=== PATIENT | male | born 1960 ===

== ENCOUNTER → 2025-03-22 | Emergency (ER) | payer OTHER ==
[~2025-03-22] VITALS: Ht 177.8 cm; Wt 99.1 kg
[2025-03-22 16:05] VITALS: BP 139/83; PULSE 70; RESP 16; TEMP 98; O2SAT 98
--- NOTE | 2025-03-22 16:16 | VISIT NOTE ---
ED Rapid Medical Assessment Chief Complaint: Detox Clearance History This is a 64-year-old male who comes in requesting a drug and alcohol test. The patient states that he was arrested last night for drug and alcohol intoxication and states that he does not drink or do drugs and would like it test approve that. Says he was just released from [facility] about 30 minutes ago. Aside from this he has not no other acute complaints. Exam: General: Well-developed well-nourished no apparent distress. Respiratory: No increased respiratory effort or retractions. No audible wheezes. Psych: The patient is agitated but cooperative. No obvious visual or auditory hallucinations. Assessment and Plan I told the patient was a there was no acute emergent need for a drug or alcohol tested at this point and you can purchase a drug test through any of the local drug stores. The patient became agitated and eloped. ELIU FREEMAN Mar 22, 2025 16:16
== END | disposition left against medical advice (07) ==
LOC: ER 16:05
DX: F10.129 Alcohol abuse with intoxication, unspecified (principal); Z53.21 Procedure and treatment not carried out due to patient leaving prior to being seen by health care provider; Y90.9 Presence of alcohol in blood, level not specified